=== PATIENT | female | born 1990 | race African-American/Black ===

== ENCOUNTER 2017-12-26 06:16 | Day surgery (SDC) | payer OTHER ==
[2017-12-26 06:51] LABS: CONTROL LINE UCG INT CTR LINE PRESENT; URINE PREG TEST NEGATIVE (NEGATIVE)
[2017-12-26] MEDS ORDERED: fentaNYL 100 MCG/2 ML INJECTION (J3010) As Ordered ×2 (07:04→08:36)
[2017-12-26] MEDS ORDERED: MIDAZOLAM INJ 2 MG/2 ML VIAL (J2250) As Ordered (07:04)
[2017-12-26] MEDS: LR 1,000 ML IV (07:05)
[2017-12-26] MEDS ORDERED: PROPOFOL 200 MG/20 ML VIAL As Ordered ×3 (07:06→08:19)
[2017-12-26] MEDS ORDERED: LIDOCAINE 2% INJ 100 MG/5 ML SDV (FOR ANES.) As Ordered (07:06)
[2017-12-26] MEDS: LIDOCAINE 1% MDV 20ML VIAL As Ordered (07:39)
[2017-12-26] MEDS: BUPIVACAINE HCL 0.5% 10 ML VIAL As Ordered (07:39)
[2017-12-26] MEDS: dexameTHASONE 4 MG/ML 1ML VIAL (J1100) As Ordered ×2 (08:26→08:57)
[2017-12-26] MEDS ORDERED: ONDANSETRON 4MG/2ML VIAL (J2405) As Ordered (08:55)
[2017-12-26] MEDS ORDERED: dexameTHASONE 4 MG/ML 1ML VIAL (J1100) As Ordered (08:56)
[2017-12-26] MEDS ORDERED: ONDANSETRON 4MG/2ML VIAL (J2405) IV (10:00)
[2017-12-26] MEDS ORDERED: PERCOCET 5MG/325MG TAB PO (10:00)
[2017-12-26] MEDS ORDERED: fentaNYL 100 MCG/2 ML INJECTION (J3010) IV (10:00)
[2017-12-26] MEDS ORDERED: LR 1,000 ML IV (10:00)
[2017-12-26] MEDS ORDERED: METOCLOPRAMIDE INJ 10MG/2ML VIAL (J2765) IV (10:00)
== END 2017-12-26 11:04 | disposition home or self-care (01) ==
LOC: M SDC 06:16
DX: Q66.89 Other specified congenital deformities of feet (principal); D35.2 Benign neoplasm of pituitary gland
CPT/HCPCS: 28308

== ENCOUNTER → 2018-05-23 | Outpatient (REF) | payer OTHER | LOC: M LAB REF 16:54 | DX: L03.116 Cellulitis of left lower limb (principal) | CPT/HCPCS: 87186 ==

== ENCOUNTER 2018-06-12 07:22 | Day surgery (SDC) | payer OTHER ==
[~2018-06-12 07:22] MED LIST: LR 1,000 ML IV
[2018-06-12] MEDS ORDERED: PROPOFOL 200 MG/20 ML VIAL As Ordered ×6 (08:05→11:09)
[2018-06-12] MEDS ORDERED: MIDAZOLAM INJ 2 MG/2 ML VIAL (J2250) As Ordered (08:06)
[2018-06-12] MEDS ORDERED: ONDANSETRON 4MG/2ML VIAL (J2405) As Ordered (08:06)
[2018-06-12] MEDS ORDERED: LIDOCAINE 2% INJ 100 MG/5 ML SDV (FOR ANES.) As Ordered (08:06)
[2018-06-12] MEDS ORDERED: fentaNYL 100 MCG/2 ML INJECTION (J3010) As Ordered (08:07)
[2018-06-12 08:22] LABS: CONTROL LINE UCG INT CTR LINE PRESENT; URINE PREG TEST NEGATIVE (NEGATIVE)
[2018-06-12] MEDS ORDERED: PHENYLephrine HCL 500 MCG/5 ML (100MCG/ML) SYRINGE (J2370) As Ordered (08:52)
[2018-06-12] MEDS ORDERED: ePHEDrine SULFATE 25 MG/5 ML(5MG/ML) SYRINGE As Ordered (08:52)
[2018-06-12] MEDS: dexameTHASONE 4 MG/ML 1ML VIAL (J1100) As Ordered (09:09)
[2018-06-12] MEDS: LIDOCAINE 1% SDV INJ 30 ML VIAL As Ordered (09:35)
[2018-06-12] MEDS: BUPIVACAINE HCL 0.5% 10 ML VIAL As Ordered (09:35)
[2018-06-12] MEDS ORDERED: KETOROLAC 60 MG/2 ML VIAL (J1885) As Ordered (10:18)
[2018-06-12] MEDS ORDERED: NORCO, ANEXSIA 5/325MG TABLET (HYDROcodone/ACETAMINOPHEN) As Ordered (11:34)
[2018-06-12] MEDS: NORCO, ANEXSIA 5/325MG TABLET (HYDROcodone/ACETAMINOPHEN) PO (11:45)
== END 2018-06-12 13:00 | disposition home or self-care (01) ==
LOC: M SDC 07:22
DX: Z47.2 Encounter for removal of internal fixation device (principal); M21.6X2 Other acquired deformities of left foot; D35.2 Benign neoplasm of pituitary gland; Z79.899 Other long term (current) drug therapy
CPT/HCPCS: 28308

== ENCOUNTER 2018-12-18 12:23 | Emergency (ER) | payer OTHER ==
[~2018-12-18] VITALS: Ht 165.1 cm; Wt 83.2 kg
[~2018-12-18 12:23] MED LIST changes: +CABE0.5T PO; +CEPH500C PO; -LR 1,000 ML IV; +XULA1DIS TD
[2018-12-18 14:32] LABS: BASO % 0.3 % (0.0-1.0); EOS % 0.1 % (0.0-3.0); HEMATOCRIT 37.5 % (36.0-47.0); HEMOGLOBIN 12.5 g/dl (12.0-15.5); LYMPH # 1.3 10^3/uL (1.5-4.5); LYMPH % 17.8 % (24.0-44.0); MEAN CORPUSCULAR HEMOGLOBIN 32.7 pg (27.0-33.0); MEAN CORPUSCULAR HGB CONC 33.3 g/dl (32.0-36.5); MEAN CORPUSCULAR VOLUME 98.2 fl (80.0-96.0); MONO # 0.4 10^3/uL (0.0-0.8); NEUTROPHILS # 5.7 10^3/uL (1.8-7.7); NEUTROPHILS % 76.4 % (36.0-66.0); PLATELET COUNT, AUTOMATED 250 10^3/uL (150-450); RED BLOOD COUNT 3.82 10^6/uL (4.00-5.40); WHITE BLOOD COUNT 7.4 10^3/uL (4.0-10.0)
--- NOTE | 2018-12-18 14:36 | REP ---
FIRST TRIMESTER AND ENDOVAGINAL PROBE OB ULTRASOUND: 12/18/2018 CLINICAL HISTORY: 8 weeks with vaginal bleeding. FINDINGS: Both transabdominal and endovaginal probes were utilized. Bladder is partly filled measuring up to 6.3 cm in length. The uterus is anteverted and measures 10.8 x 6.1 x 5.8 cm. On EV probe, the endometrial stripe is seen. It has a thickness of up to 18 mm. I do not see a gestational sac or a pseudo gestational sac. No fluid in the endometrial cavity or endocervical canal portion of the uterus. The right ovary is 2.6 x 2 x 2.7 cm. It has a Doppler tracing with resistive index of 0.49. There is a complex mixed echo area in the left adnexa difficult to evaluate. Loops of bowel in this region might obscure findings. Fat from omentum or even a dermoid could also obscure some of the findings. No gross evidence of an ectopic but that is not excluded. No definitive images of the left ovary. IMPRESSION: 1. EV probe shows no evidence of intrauterine gestation or fluid in the endometrial cavity. 2. There is a complex echogenic area in the left adnexa without definite normal ovary. Whether this appearance is due to bowel gas, fat, or dermoid with fat is uncertain. An ectopic is not entirely excluded. The right ovary was normal. No free fluid. 3. Recommend followup ultrasound and HCG at clinically appropriate interval. ADDENDUM: The patient returns for another attempt to visualize the left adnexa at the request of the consulting sales clerk food. When rescanned with a transabdominal curved array transducer, the left ovary is seen with its appearance as a complex mass, measuring 4.6 by 3.4 x 4.7 cm. There are hypoechoic and hyperechoic focus within. I suspect a dermoid measuring 4.4 x 4.2 x 3.2 cm. Fat and hair are suspected within this. Color Doppler of the left ovary showed resistive index of 0.43. There is no torsion. Impression: 1. 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 No torsion. Fat and suspected hair within. The inability to visualize the ovary on the initial scan is that it is displaced superiorly and not visible by endovaginal probe. Electronically Signed by Emmanuel Baker MD 12/18/2018 04:09 P
[2018-12-18 15:06] LABS: BLOOD UREA NITROGEN 10 MG/DL (7-18); CALCIUM LEVEL 9.5 MG/DL (8.5-10.1); CARBON DIOXIDE LEVEL 25 MEQ/L (21-32); CHLORIDE LEVEL 108 MEQ/L (98-107); CREATININE FOR GFR 0.89 MG/DL (0.55-1.30); GLOMERULAR FILTRATION RATE > 60.0 (>60); GLUCOSE, FASTING 101 MG/DL (70-100); HCG, SERUM QUANTITATIVE 596 MIU/ML; POTASSIUM SERUM 4.1 MEQ/L (3.5-5.1); SODIUM LEVEL 140 MEQ/L (136-145)
[2018-12-18 16:48] VITALS: BP 122/64
--- NOTE | 2018-12-19 08:28 | HPE ---
DATE OF ADMISSION: 12/18/2018 This lady is a 28-year-old 2, para 1 who was seen through the emergency department who came in with excessive vaginal bleeding and some lower abdominal pain. She did a urine test at the end of October, did one positive urine test in November, and then came into emergency with vaginal bleeding and lower pelvic pain. Her last menstrual period (LMP) was October 18, 2018. Her past history is that she has had a previous section for a live female infant because of nonreassuring heart tones, and she has presently been using nothing for control attempting to get . She is a prolactinoma and she is on cabergoline 0.5 mg p.o. twice a week to reduce her prolactin level so that she get . Besides her section, she has had surgery on her left ankle and she has had a wisdom teeth removed and she has regular evaluations of her pituitary gland. She has been on her medication since 2013, which has been able to reduce her prolactin level. She denies any headache, visual disturbances, pain or pressure in her head. No evidence of migraines. On examination, she does not appear to be in any acute distress. Her temperature is 98.5, pulse was 88, blood pressure was 142/84 on admission, respirations were 20 with 98% of oxygen saturation. CBC shows that she has a low hemoglobin of 12.5, hematocrit 37.5 and platelets were 250. Her urine shows a 1.009, pH of 7, negative protein, negative glucose, negative bilirubin, negative nitrates. She has a trace of leukocyte esterase, 3+ blood, 1+ bacteria. Her anion gap is 7 and her rest of her chemistry is within normal limits. GFR is greater than 60. Her quantitative beta hCG is 596. She had an initial ultrasound which showed a empty uterus, appeared to have a normal endometrial thickness, a right adnexal area which was normal. Could not demonstrate the left adnexal area, but thought maybe she had a vascular lesion in the adnexal area but not distinguishable from the ovary. There was no free fluid in the cul-de-sac. She then had a repeat of her ultrasound which showed that she did have in fact a dermoid tumor 4.6 x 4.2 cm, which was clearly demonstrated on abdominal exam. The rest of her examination is unremarkable. She is normocephalic, atraumatic. Neck full range of motion. Pupils equal and reactive to light. Distal pulses are symmetric. No evidence of deep vein thrombosis (DVT), pulmonary embolism (PE), or superficial phlebitis. Lungs are clear bilaterally to bases. No wheezes or rhonchi. Abdomen is soft, four quadrant bowel sounds are noted. She has no rebound or guarding. She has no rashes, lesions or pruritus. No arthralgia or myalgia. No complaints of cough, wheezes, shortness of breath or dyspnea on exertion. She has no nausea, vomiting or diarrhea. The only endocrine issue she has is her prolactinoma under control with medication. 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 Past medical and surgical history, as mentioned before. Family history is noncontributory. She does not smoke, drink or abuse drugs. No domestic violence. to a soldier with good support systems. On examination speculum, the cervix is closed. There is some fresh blood, but not profuse amount. The uterus is tender, midline and slightly enlarged. The left adnexal area is tender. The right adnexa area is nontender. We discussed with the patient plan of management in the fact that she does not have an ectopic , does have not dermoid tumor. Explained to her what a dermoid tumor was. Explained the fact that she may be in the throws of spontaneous miscarriage or complete miscarriage; however, this has to be dealt with as a separate issue to her dermoid. In fact, we will repeat her quantitative beta hCG at [place] in 48 hours time and she is to come and get a letter for [facility] and she has to make an appointment with Dr. Hamm on Sunday, she has a repeat of her quant and possibility at that time in evaluating if it is a complete or if it is a missed , to have a combination of a dilatation and curettage with a laparoscopic excision of her left dermoid tumor. The patient was encouraged to come back to the hospital if she has an acute episode of left lower quadrant pain, which may indicate torsion, or if she has profuse bleeding which may indicate uncontrolled missed . The patient and the expressed understanding. The patient left with instructions and a preliminary letter of [facility], but will pharmacy picking tech the official document tomorrow morning and make her appointments.
== END 2018-12-18 17:02 | disposition home or self-care (01) ==
LOC: M ED 12:23
DX: O20.0 Threatened abortion (principal); Z3A.00 Weeks of gestation of pregnancy not specified

== ENCOUNTER 2019-04-20 19:03 | Emergency (ER) | payer OTHER ==
[~2019-04-20] VITALS: Ht 165.1 cm; Wt 82.4 kg
[2019-04-20 19:04] VITALS: BP 151/95
[2019-04-20 19:46] LABS: BASO % 0.1 % (0.0-1.0); EOS % 0.5 % (0.0-3.0); HEMATOCRIT 35.8 % (36.0-47.0); HEMOGLOBIN 12.4 g/dl (12.0-15.5); LYMPH # 2.4 10^3/uL (1.5-4.5); LYMPH % 29.1 % (24.0-44.0); MEAN CORPUSCULAR HEMOGLOBIN 33.7 pg (27.0-33.0); MEAN CORPUSCULAR HGB CONC 34.6 g/dl (32.0-36.5); MEAN CORPUSCULAR VOLUME 97.3 fl (80.0-96.0); MONO # 0.6 10^3/uL (0.0-0.8); NEUTROPHILS # 5.2 10^3/uL (1.8-7.7); NEUTROPHILS % 62.9 % (36.0-66.0); PLATELET COUNT, AUTOMATED 247 10^3/uL (150-450); RED BLOOD COUNT 3.68 10^6/uL (4.00-5.40); WHITE BLOOD COUNT 8.3 10^3/uL (4.0-10.0)
--- NOTE | 2019-04-20 21:37 | REPVR ---
EXAM: US First Trimester, Transabdominal EXAM DATE/TIME: 04/20/2019 8:16 PM CLINICAL HISTORY: 29 years old, female; Lmp or gestational age (in weeks): 9w4d; Antepartum complications; Bleeding; ; Additional info: Vaginal bleeding TECHNIQUE: Imaging protocol: Real-time transabdominal obstetrical ultrasound of the maternal pelvis and a first trimester , less than 14 weeks 0 days, with image documentation. COMPARISON: No relevant prior studies available. FINDINGS: GESTATION: Gestation: Gestational sac present. pole present. Heart rate: The heart rate is 160 beats per minute. Placenta: A small subchorionic hemorrhage measuring 1.3 cm x 1.0 cm x 1.0 cm is present. Amniotic fluid: Normal for gestational age. BIOMETRY: Estimated gestational age: Estimated gestational age by crown-rump length of 3.3 cm is 10 weeks, 1 day. Estimated due date: The estimated date of delivery by ultrasound is 11/15/2019. MATERNAL: Uterus: Unremarkable. Cervix: Unremarkable. Right adnexa: There are 2 cysts within the right ovary. These measure 4.2 cm x 2.7 cm x 3.0 cm and 4.3 cm x 2.9 cm x 3.1 cm. Left adnexa: A known left ovarian dermoid is again identified. It measures 4.2 cm x 3.5 cm x 3.7 cm. Intraperitoneal: No free intraperitoneal fluid is identified. IMPRESSION: 1. Single, live intrauterine with an estimated gestational age of 10 weeks, 1 day and a heart rate of 160 beats per minute. 2. Small subchorionic hemorrhage. Electronically signed by: Gato Stevenson On 04/20/2019 21:37:50 PM
== END 2019-04-20 23:04 | disposition home or self-care (01) ==
LOC: M ED 19:03
DX: O20.8 Other hemorrhage in early pregnancy (principal); Z3A.10 10 weeks gestation of pregnancy

== ENCOUNTER 2019-11-08 03:45 | Outpatient (CLI) | payer OTHER ==
[~2019-11-08] VITALS: Ht 165.1 cm; Wt 93.1 kg
[2019-11-08 04:03] VITALS: BP 135/75
[2019-11-08] MEDS ORDERED: diphenhydrAMINE INJ 50MG/ML VIAL (J1200) IV ONE (05:00)
[2019-11-08] MEDS ORDERED: LR 500 ML IV ONE (05:00)
[2019-11-08] MEDS ORDERED: LR 1,000 ML IV SCH (05:00)
[2019-11-08 05:09] VITALS: BP 124/71
[2019-11-08] MEDS ORDERED: PRENTAB77 PO (05:30)
[2019-11-08] MEDS ORDERED: ACET1TAB55 PO (05:30)
[2019-11-08] MEDS ORDERED: BENA25CA4 PO (05:30)
[2019-11-08 07:06] VITALS: BP 120/71
[2019-11-08 07:54] VITALS: BP 119/71
--- NOTE | 2019-11-08 08:03 | IPNPDOC ---
Text Note Date of Service The patient was seen on 11/08/19. NOTE Triage Note Veronique is a with [facility] at 38w3d presenting for full body itching and hives that started late last night. She called me and I recommended trying oral benadryl which she did, but had no relief, so presented to L&D around 0500. I ordered IVF and IV benadryl 25mg x1, and patient still had no appreciable change in her symptoms. She has felt occasional/irregular ctx, no loss of fluid, no vaginal bleeding. Good movement. Denies any changes to soaps/detergents/diet. Had mac&cheese last night, nothing new or strange. No SOB or any issues breathing/wheezing. She does not normally have allergies of any kind and she has never had this particular issue before. History is significant for prior section, counseled previously for TOLAC and still desires TOLAC. Vitals wnl (pulse initially high but settled down), afebrile General: WDWN, resting in bed itching occasionally, conversant Abdomen: soft, gravid, NTTP Full skin eval of legs/abdomen/arms/back reveals true hives over the back of her neck but no other obvious areas SCE 3/50/-2, first check was by RN and 2nd by me, unchanged over 2 hours Cat I FHRT with bl 130, +accels, -decels, mod yadiel Barton: ctx irregular Assessment: Veronique is a with [facility] at 38w3d presenting for full body itching and hives (over back of neck) that started suddenly late last night recalcitrant to benadryl. While I am not certain of etiology, it may well be an atypical reaction to very early latent labor given patient's SCE 3/50/-2 (unchanged over 2hr) with irregular ctx. Reassuring assessment. Vitals wnl. Patient still desires TOLAC. Plan: -Safe for discharge -Continue benadryl 50mg PO q6hr prn -If still having this itching and discomfort on Sunday at her scheduled appt, we can try a course of steroids and/or H2 anti-histamine -Continue good hydration -Discussed labor precautions with patient and when to return Dr. Starla Steele MD VS,Tana, I+O VS, Fishbone, I+O Vital Signs Date Time Temp Pulse Resp B/P (MAP) Pulse Ox O2 Delivery O2 Flow Rate FiO2 11/08/19 07:06 98.3 106 16 120/71 (87) 98 Room Air 98.3 Starla Steele MD Nov 08, 2019 08:03
== END 2019-11-08 08:05 | disposition home or self-care (01) ==
LOC: M LDO 03:45
PROVIDERS: ATTEND Obstetrics & Gynecology
DX: O26.893 Other specified pregnancy related conditions, third trimester (principal); L50.9 Urticaria, unspecified; Z3A.38 38 weeks gestation of pregnancy

== ENCOUNTER 2019-11-08 15:51 | Inpatient (IN) | payer OTHER ==
[~2019-11-08] VITALS: Ht 165.1 cm; Wt 94.2 kg
[~2019-11-08 15:51] MED LIST changes: +ACET1TAB55 PO; +BENA25CA4 PO; +PRENTAB77 PO
[2019-11-08 16:13] VITALS: BP 123/64
[2019-11-08] MEDS ORDERED: LR 1,000 ML IV SCH ×2 (16:35→23:00)
[2019-11-08] MEDS ORDERED: BICITRA 30ML SOLN UDC PO ONE (16:45)
[2019-11-08] MEDS ORDERED: LACTATED RINGER'S 1000 ML IV ONE (16:45)
[2019-11-08] MEDS ORDERED: ceFAZolin SOD 2 GM in IV 1 EA IV ONE (16:45)
[2019-11-08] MEDS ORDERED: AZITHROMYCIN INJ 500 MG, VIAL MATE ADAPTER 1 EACH in D5W 250 ML IV ONE (16:45)
[2019-11-08] MEDS ORDERED: ACETAMINOPHEN 650 MG SUPP PR ONE (17:15)
[2019-11-08] MEDS ORDERED: BUPIVACAINE HCL 0.25% 10 ML VIAL SC ONE (17:15)
[2019-11-08 17:21] VITALS: BP 123/66
[2019-11-08 17:30] LABS: HEMATOCRIT 40.6 % (36.0-47.0); HEMOGLOBIN 13.3 g/dl (12.0-15.5); MEAN CORPUSCULAR HEMOGLOBIN 33.5 pg (27.0-33.0); MEAN CORPUSCULAR HGB CONC 32.8 g/dl (32.0-36.5); MEAN CORPUSCULAR VOLUME 102.3 fl (80.0-96.0); PLATELET COUNT, AUTOMATED 201 10^3/uL (150-450); RED BLOOD COUNT 3.97 10^6/uL (4.00-5.40)
[2019-11-08 17:56] LABS: HEMOGLOBIN A1c 5.7 %
[2019-11-08 18:46] VITALS: BP 127/73
[2019-11-08] MEDS ORDERED: MORPHINE PRES-FREE INJ 10 MG/10 ML VIAL (J2274) As Ordered ONE (20:02)
[2019-11-08] MEDS ORDERED: fentaNYL 100 MCG/2 ML INJECTION (J3010) As Ordered ONE (20:02)
[2019-11-08] MEDS ORDERED: ONDANSETRON 4MG/2ML VIAL (J2405) As Ordered ONE (20:03)
[2019-11-08] MEDS ORDERED: OXYTOCIN 30 UNITS IN 0.9% NaCl 500ML IV BAG (J2590) As Ordered ONE (20:03)
[2019-11-08] MEDS ORDERED: dexameTHASONE 4 MG/ML 1ML VIAL (J1100) As Ordered ONE (20:03)
[2019-11-08] MEDS ORDERED: METOCLOPRAMIDE INJ 10MG/2ML VIAL (J2765) As Ordered ONE (20:03)
[2019-11-08] MEDS ORDERED: OXYTOCIN INJ 10 UNITS/ML VIAL (J2590) As Ordered ONE (20:08)
--- NOTE | 2019-11-08 20:40 | HPE ---
DATE OF ADMISSION: 11/08/2019 29-year-old 3, para 1, 1, last menstrual period (LMP) 01/31/2019, estimated date of confinement (EDC) 11/19/2019 having contractions times 24 hours, was seen in LAD yesterday. Cervix was 3 cm high balotable, presenting part. No vaginal loss or bleeding. Risk factors is she had a previous section for failure to descend, failure to dilate. She has a pituitary tumor which is stable. She had an early 1-hour GTT was elevated, a 3-hour GTT was normal and she has an abnormal Pap smear showing LGSIL. PAST HISTORY: 2015 section at 42 weeks, female, 7 pounds 4 ounces. 2019, 5 weeks spontaneous . LABORATORY: B+, human immunodeficiency virus (HIV) negative, hepatitis negative, RPR negative, rubella immune, Varicella immune. Pap was LGSIL. Urine was negative. Gonorrhea and chlamydia negative. 1-hour glucose 184, 3-hour GTT fasting 89, 1-hour 164, 2-hour 124, 3 [id number] and she is GBS negative. Blood pressure 123/64, respirations 18, pulse 108, temperature is 98.7. Urine is 1.025, 2+ ketones and 5 pH. She is presently dehydrated and the cervix is unchanged. Symphysis fundus height is 40, vertex presenting. No scar pain. Category one strip. The presenting part is not engaged and balotable. Plan is to hydrate the patient and do a repeat section after 6 hours as the patient had recently something to eat. We discussed the case with anesthesia, who recommend 6 hours. We discussed the risks and benefits of repeat section including hemorrhage, infection, perforation, , reoperation, remote possibility of blood transfusion, remote possibility of hysterectomy, life-threatening bleeding situations, remote possibility laceration and/or admission to the NICU. The patient expressed understanding of the above, signed the consent form. All questions were answered. 40-minute discussion.
[2019-11-08 22:01] LABS: CORD GAS ABE A -1.8; CORD GAS ABE V -2.8; CORD GAS HCO3 A 26.7 MEQ/L; CORD GAS HCO3 V 23.2 MEQ/L; CORD GAS O2 SAT A 21.2 %; CORD GAS O2 SAT V 65.6 %; CORD GAS PCO2 A 61.2 mmHg; CORD GAS PCO2 V 44.2 mmHg; CORD GAS PH A 7.257 UNITS; CORD GAS PH V 7.337 UNITS; CORD GAS PO2 A 12.9 mmHg; CORD GAS SBC A 21.1 MEQ/L; CORD GAS SBC V 21.4 MEQ/L; CORD GAS TCO2 A 28.5 MEQ/L; CORD GAS TCO2 V 24.5 MEQ/L
[2019-11-08] MEDS ORDERED: KETOROLAC 60 MG/2 ML VIAL (J1885) As Ordered ONE (22:11)
[2019-11-08] MEDS ORDERED: ACETAMINOPHEN 1000MG 100ML IV BTL (OFIRMEV) (J0131 PER 10MG) As Ordered ONE (22:14)
[2019-11-08] MEDS ORDERED: OXYTOCIN DRIP 30 UNITS in IV 1 EA IV SCH (22:29)
[2019-11-08] MEDS ORDERED: ACETAMINOPHEN TAB 650MG DOSE (2X325MG) PO PRN (22:30)
[2019-11-08] MEDS ORDERED: MOM 30ML SUSPENSION UDC PO PRN (22:30)
[2019-11-08] MEDS ORDERED: ACETAMINOPHEN 650 MG SUPP PR PRN (22:30)
[2019-11-08] MEDS ORDERED: DOCUSATE SODIUM 100 MG CAP PO PRN (22:30)
[2019-11-08] MEDS ORDERED: ACETAMINOPHEN 500 MG TAB PO PRN (22:30)
[2019-11-08] MEDS ORDERED: PERCOCET 5MG/325MG TAB PO PRN ×2 (22:30)
[2019-11-08] MEDS ORDERED: ANUSOL HC CREAM 30GM TOP PRN (22:30)
[2019-11-08] MEDS ORDERED: RHOGAM 300 MCG (1500 IU) INJ (J2790) IM SCH (23:00)
[2019-11-08] MEDS ORDERED: MEASLES,MUMPS,RUBELLA VACCINE INJ (MMR-II) (90707) SC SCH (23:00)
[2019-11-08] MEDS ORDERED: OXYTOCIN INJ 10 UNITS/ML VIAL (J2590) IV ONE (23:00)
[2019-11-09] VITALS (10 sets, daily range): BP systolic 105–131; BP diastolic 55–76
[2019-11-09] MEDS ORDERED: fentaNYL 100 MCG/2 ML INJECTION (J3010) IV PRN (01:00)
[2019-11-09] MEDS ORDERED: ONDANSETRON 4MG/2ML VIAL (J2405) IV PRN ×2 (01:00→04:45)
[2019-11-09] MEDS: KETOROLAC 30 MG/ML VIAL (J1885) IV SCH ×3 (04:42→16:00)
[2019-11-09] MEDS ORDERED: LR 800 ML IV ONE (07:00)
[2019-11-09 07:04] LABS: HEMATOCRIT 36.3 % (36.0-47.0); HEMOGLOBIN 11.9 g/dl (12.0-15.5); MEAN CORPUSCULAR HEMOGLOBIN 34.3 pg (27.0-33.0); MEAN CORPUSCULAR HGB CONC 32.8 g/dl (32.0-36.5); MEAN CORPUSCULAR VOLUME 104.6 fl (80.0-96.0); PLATELET COUNT, AUTOMATED 164 10^3/uL (150-450); RED BLOOD COUNT 3.47 10^6/uL (4.00-5.40); WHITE BLOOD COUNT 8.8 10^3/uL (4.0-10.0)
--- NOTE | 2019-11-09 07:41 | IPN ---
DATE: 11/09/2019 This lady is a 29-year-old, 3, now para 2 who had a repeat section for transverse lie, failure to dilate, failure to descend, of a female infant, 7 pounds 6 ounces, 3340 grams. Overnight, she had some significant nausea and vomiting secondary to analgesics. She was given Zofran. However, she has now resolved that issue, but she is behind in her fluids and her last urinary output was 20 mL/hour. Therefore, she was given a bolus of IV of 800 mL, to follow with 125 mL per hour, and monitor output in order to see there is an increase. Her blood pressure this morning is 119/59, respirations 16, pulse 73 and temperature 97.4. The rest of the examination is unremarkable. Normocephalic, atraumatic. Neck full range of motion. Pupils equal and reactive to light. Distal pulses symmetric. No evidence of deep vein thrombosis (DVT) pulmonary embolus (PE) or superficial phlebitis. Chest is clear bilaterally at bases. No wheezes or rhonchi. No costovertebral angle (CVA) tenderness. Abdomen soft. Four quadrant bowel sounds are noted. Incision is clean and dry. Lochia is moderate. In summary, we have a day #1 and postoperative day #1 patient with slightly decreased urinary output, a little bit fluid behind, which we will offset by an IV bolus.
[2019-11-09] MEDS ORDERED: PRENATAL VITAMINS CHEWABLE TABLET PO SCH ×2 (09:00→21:00)
[2019-11-09] MEDS ORDERED: IBUPROFEN 600 MG TAB PO PRN (22:00)
[2019-11-10] MEDS ORDERED: IBUPROFEN 800 MG TAB PO PRN
[2019-11-10 05:51] VITALS: BP 115/59
[2019-11-10] MEDS ORDERED: IBUP80TA PO (07:21)
[2019-11-10] MEDS ORDERED: PERCOCET PO (07:21)
--- NOTE | 2019-11-10 07:34 | DS.PDOC ---
Discharge Summary General Date of Admission Nov 08, 2019 at 17:06 Date of Discharge Nov 10, 2019 Discharge Summary HOSPITAL COURSE: Ms. Mcfarland is a 29 yo G3 now P2 who was admitted to [facility] on [id number] for painful contractions in the setting of a prior section. She underwent an uncomplicated RLTCS on that same day with Dr. Hamm. Her course was unremarkable. On her day of discharge she met all appropriate discharge criteria. She was ambulating, voiding on her own, tolerating a regular diet, had minimal lochia, and her pain was well controlled with PO pain medications. DISCHARGE MEDICATIONS: Please see below. ALLERGIES: Please see below. PHYSICAL EXAMINATION ON DISCHARGE: VITAL SIGNS: Please see below. GENERAL: Patient AAOX3, sitting up in bed, pleasant and conversant ABDOMINAL EXAMINATION: Soft, non distended. Fundus firm at U-2. Incision well appearing and clean/dry/intact. No tenderness to palpation. EXTREMITIES: No edema PSYCHIATRIC EXAMINATION: Affect appropriate LABORATORY DATA: Please see below. ACTIVITY: Pelvic rest for 6 weeks. No heavy lifting for 6 weeks. DIET: Regular DISCHARGE PLAN: Discharge home DISPOSITION: Discharge home on 10Nov2019 DISCHARGE INSTRUCTIONS: 1. pelvic rest for 6 weeks. 2. No heavy lifting for 6 weeks ITEMS TO FOLLOWUP ON ON OUTPATIENT: 1. Incision check in 2 weeks in the [facility] DISCHARGE CONDITION: Stable. TIME SPENT ON DISCHARGE: Greater than 20 minutes. Alhaji Rivera DO Vital Signs/I&Os Vital Signs Date Time Temp Pulse Resp B/P (MAP) Pulse Ox O2 Delivery O2 Flow Rate FiO2 11/10/19 05:51 98.3 66 17 115/59 (77) 97 Room Air 98.3 I&O- Last 24 Hours up to 6 AM 11/10/19 06:00 Intake Total 633 ml Output Total 695 ml Balance -62 ml Discharge Medications Scheduled Diphenhydramine HCl (Benadryl) 25 Mg Capsule, 25 MG PO QPM for Itching, (Reported) Pnv,Calcium 72/Iron/Folic Acid ( Plus Tablet) 1 Each Tablet, 1 TAB PO DAILY, (Reported) Scheduled PRN Ibuprofen (Ibuprofen) 800 Mg Tablet, 800 MG PO Q8HP PRN for PAIN LEVEL 6-10 Oxycodone/Acetaminophen (Oxycodone-Acetaminophen 5-325) 1 Each Tablet, 2 TAB PO Q6H PRN for SEVERE PAIN (PS 8-10) Allergies Coded Allergies: No Known Allergies (Unverified , 04/20/19) ALHAJI RIVERA DO Nov 10, 2019 07:34
--- NOTE | 2019-11-10 09:46 | RO ---
DATE OF PROCEDURE: 11/08/2019 This is a 29-year-old 3, para 1 admitted in labor, prodromal over the last 13 hours. She was previously checked, found to be 1 cm, not engaged in the pelvis. Cervix is thick and closed and high. When she came in it was similar and she had had a previous section for similar episodic motion. She had eaten and therefore we had to wait 6 hours and with irregular type contractions she never progressed beyond what she did at her admission examination. Therefore, a repeat section was entertained. PREOPERATIVE DIAGNOSIS: previous cs failure to descend POSTOPERATIVE DIAGNOSIS: previous cs failure to descend transverse lie head tomaternal right PROCEDURE: repeat cs SURGEON: Tonio Hamm MD CUSTOMER MARKETING ASSISTANT: Dr. Dietrich for extraction, retraction and visualization. ESTIMATED BLOOD LOSS: 500 mL. ANESTHESIA: She had a spinal plus local anesthetic for intraperitoneal procedures. After adequate time out, prepped and draped in the supine position, Bergman catheter in the bladder draining clear urine, acetaminophen suppository 1300 mg per rectum, appropriate antibiotics in place and sequentials in place, a Pfannenstiel incision was made through the previous one, passing through abdominal layers securing hemostasis. Opening the peritoneal cavity we put the Mobius in and the bladder was reflected well down anteriorly. A low transverse incision was made into the uterus. We noticed that this patient had the head of the baby abutted against the maternal right and we had to reestablish vertex and towards the pelvis and an AROM draining clear liqua, delivered a live female 3340 grams, 7 pounds 6 ounces, scores of eight and nine at 1 and 5 minutes respectfully. Arterial pH 7.21, base excess -1.8, venous pH was 7.33, base excess -2.8. The placenta spontaneously delivered. Three-vessels in the cord. Membranes and tissues intact. We swept out the uterus and then over sewed the lower segment in the usual fashion in two layers and reperitonealization was performed. With instrument and pad count correct, the Mobius was removed, peritoneum was closed with a running stitch of #2-0, fascia was closed in the appropriate fashion, subcutaneous suture and Dexon to the skin, Marcaine 0.25% 10 mL to the incisional site, spray and Telfa. The patient was taken back to recovery in good condition. [facility]ENTER[facility]jeoma
== END 2019-11-10 12:01 | disposition home or self-care (01) | DRG 773 ==
LOC: M LDO 15:51 → M LDI 17:06 → M OBS 11-09 00:01
PROVIDERS: ADMIT Obstetrics & Gynecology; ATTEND Obstetrics & Gynecology
PROC: 10D00Z1 Extraction of Products of Conception, Low, Open Approach (ICD-10-PCS; principal; 2019-11-08 21:02)
DX: O34.211 Maternal care for low transverse scar from previous cesarean delivery (principal); Z37.0 Single live birth; E86.0 Dehydration; O99.284 Endocrine, nutritional and metabolic diseases complicating childbirth; O32.6XX0 Maternal care for compound presentation, not applicable or unspecified; Z3A.39 39 weeks gestation of pregnancy